=== PATIENT | female | born 1960 | race Caucasian/White ===

== ENCOUNTER → 2017-08-27 | Outpatient (CLI) | payer OTHER ==
[~2017-08-27] MED LIST: CELE10TA PO; COMMODE 3-IN-11 MIS; HYDR-3580 PO; METF500T PO; WALKER WHEELS/F1 MIS; XARE10TA PO
== END ==
LOC: CPRE 11:32
PROVIDERS: ATTEND Orthopaedic Surgery Orthopaedic Surgery of the Spine
DX: Z01.812 Encounter for preprocedural laboratory examination (principal)

== ENCOUNTER 2017-08-28 12:00 | Inpatient (IN) | payer OTHER ==
[~2017-08-28] VITALS: Ht 166.4 cm; Wt 77.2 kg
[~2017-08-28 12:00] MED LIST changes: -COMMODE 3-IN-11 MIS; +GLYCOPYRROLATE 1 MG/5 ML SYRINGE IV PUSH ONE; -HYDR-3580 PO; +LACTATED RINGER'S 1000 ML INJ 1,000 ML IV ONE; +LIDOCAINE HCL 1% PF 5 ML SYRINGE OTHER ONE; +NEOSTIGMINE 5 MG/5 ML SYRINGE IV PUSH ONE; +ONDANSETRON HCL 4 MG/2 ML VIAL IV ONE; +PROPOFOL 200 MG/20 ML AMP IV ONE; +ROCURONIUM INJ 50 MG/5 ML SYRINGE IV PUSH ONE; -WALKER WHEELS/F1 MIS; -XARE10TA PO
[2017-08-28] MEDS ORDERED: VANCOMYCIN 1 GM/200 ML INJ 200 ML IV ONE (13:51)
[2017-08-28] MEDS ORDERED: TRANEXAMIC ACID INJ 770 MG in SODIUM CHLORIDE 0.9% INJ 100 ML IV SCH (14:30)
[2017-08-28] MEDS ORDERED: VANCOMYCIN 1000 MG/NS 250 ML (for <70 kg) IV SCH ×2 (14:30)
[2017-08-28] MEDS ORDERED: CHLORHEXIDINE GLUCONATE 4% SOLN 120 ML BTL TOPICAL SCH (14:30)
[2017-08-28] MEDS ORDERED: ceFAZolin 2 GM PREMIX 50 ML IV SCH (14:30)
[2017-08-28] MEDS ORDERED: EXPAREL PERI-ARTICULAR INJECTION (TOTAL VOL. 60 ML) P-ARTICULR SCH ×2 (14:30)
[2017-08-28] MEDS ORDERED: BUPIVACAINE/EPINEPHRINE 0.25% 50 ML VIAL ONE (14:44)
[2017-08-28] MEDS ORDERED: BUPIVACAINE/EPINEPHRINE 0.25% PF 10 ML VIAL ONE (14:44)
[2017-08-28] MEDS ORDERED: GENTAMICIN SULFATE 80 MG/2 ML VIAL ONE (14:44)
[2017-08-28] MEDS ORDERED: POVIDONE IODINE 5% (ANTISEPSIS KIT) 4 APPLICATIONS EACH NARE PRN (14:45)
[2017-08-28] MEDS ORDERED: CHLORHEXIDINE GLUCONATE 2 % 1 PACK (2 CLOTHS) TOPICAL PRN (14:45)
[2017-08-28] MEDS ORDERED: METOPROLOL TARTRATE 25 MG TAB PO PRN (14:45)
[2017-08-28] MEDS ORDERED: SODIUM CHLORID 0.9% 500 ML IV PRN (14:45)
[2017-08-28] MEDS ORDERED: LACTATED RINGER'S 1000 ML IV PRN (14:45)
[2017-08-28] MEDS ORDERED: MIDAZOLAM HCL 2 MG/2 ML VIAL ONE (16:11)
--- NOTE | 2017-08-28 17:44 | RADRPT ---
EXAM DATE/TIME: 08/28/2017 16:23 [place] COMPARISON: No previous studies available for comparison. INDICATIONS : Post total right hip replacement. MEDICAL HISTORY : None. SURGICAL HISTORY : None. ENCOUNTER: Initial ACUITY: 1 day PAIN SCORE: Non-responsive. LOCATION: Right hip. FINDINGS: Patient is status post placement of a right hip prosthesis. There is good position and alignment of t he prosthesis and bony structures. The bony structures are grossly intact. Postsurgical changes are p resent. CONCLUSION: Good position and alignment on this postoperative examination. Yonas Huitron MD on August 28, 2017 at 17:41 Board Certified Radiologist. This report was verified electronically.
[2017-08-28] MEDS ORDERED: NALOXONE HCL 0.4 MG/ML AMP IV PUSH PRN (17:45)
[2017-08-28] MEDS ORDERED: MISCELLANEOUS PHARMACY INFORMATION XX ONE (17:45)
[2017-08-28] MEDS ORDERED: MORPHINE SULFATE 8 MG/ML INJ IM PRN (17:45)
[2017-08-28] MEDS ORDERED: Post-op Orders (for Pharmacy) XX ONE (17:45)
[2017-08-28] MEDS ORDERED: ACETAMINOPHEN/HYDROcodone 325 MG/7.5 MG TAB PO PRN (17:45)
[2017-08-28] MEDS ORDERED: MISCELLANEOUS NURSING INFORMATION XX PRN (17:45)
--- NOTE | 2017-08-28 17:49 | PD.OP ---
cc: Wilder Berman MD Operative Report Date of Surgery: Aug 28, 2017 Preoperative Diagnosis: Osteoarthritis right hip Postoperative Diagnosis: Same Procedure: Right total hip replacement arthroplasty, direct anterior exposure Anesthesia: Gen. Surgeon: Wilder Berman [employer] Subcontractor(s): GM Auguste Operation and Findings: EBL: 200 cc INDICATION: This patient presents with significant hip pain related to osteoarthritis. Despite extensive conservative care this patient continues to be painful and now presents for surgical treatment. NOTE: Alpa Auguste PA-C was present for the entire surgical procedure as my psychology assistant. In my medical opinion her skill and care was necessary for the proper management of this patient. COMPONENTS: COMPANY: [employer] CUP: [place], 48 mm, 100 series, gription surface LINER: Altrx 32 mm, neutral STEM: [place], size 10, standard offset, hydroxyapatite-coated HEAD: Ceramic, 32 mm, +1, 12/14 taper PROCEDURE: This patient was brought to the operating room and anesthetized in the supine position and positioned on the fracture table with both legs held extended. The right hip and leg was scrubbed with alcohol followed by Hibiclens followed by ChloraPrep and draped sterilely. Antibiotics were given within routine time window and a timeout was done. A 4 inch incision was made starting 2 cm distal and 2 cm lateral to the anterior superior iliac spine. The fascia shin was opened longitudinally. The interval between the fascia shin and the rectus was opened down to the capsule of the hip joint. Retractors were positioned allowing good visualization of the capsule. This was opened longitudinally and flaps were created. Stay sutures were utilized. Exposure was excellent. The neck was cut at the proper location using fluoroscopy as a guide. The head was removed. Deep retractors were positioned allowing good visualization of the acetabulum. Acetabulum was deepened down to the floor starting with a proper size reamer and reaming up to 47 mm. A trial was utilized. Fluoroscopy was used to check position and confirmed satisfactory alignment. The rim was reamed with a orally 8 mm reamer and the final cup was positioned in approximately 20 of anteversion and 40-45 of abduction. Position was satisfactory. A single hole eliminator was positioned followed by the final liner. The lifting hook was utilized. The leg was dropped to the floor, maximally externally rotated and brought across the midline. Retractors were positioned. A box osteotome was utilized followed by progressive broaching to the proper stem size. Trial reduction showed excellent alignment and fit. With 60 of external rotation the leg was dropped to the floor without evidence of anterior subluxation. The wound was irrigated. The final stem was inserted and was found to be very stable. The final reduction using the final head. Stability was as previously noted. Intraoperative x-rays were taken. The wound was irrigated copiously. Hemostasis was controlled. Local anesthesia was utilized. The capsule was repaired with #2 Tycron sutures. The fascia shin was repaired with running 0 PDS on a loop. Subcutaneous tissue was approximated with 2-0 Vicryl and skin with running intradermal 3-0 Vicryl followed by Steri-Strips. A sterile dressing was applied. The patient was awakened and taken to the recovery room in satisfactory condition. FINDINGS: There was severe osteoarthritis of the right hip. There was significant fluid in the right hip joint. The final solution was excellent. No complication was appreciated. We lengthened the right leg by approximately 5 -6 mm Wilder Berman MD Aug 28, 2017 17:49
[2017-08-28] MEDS ORDERED: XARE10TA PO (17:52)
[2017-08-28] MEDS ORDERED: HYDR-3580 PO (17:52)
[2017-08-28] MEDS ORDERED: DO NOT ADM ANY ANTICOAGULANT DRUGS PRN (18:13)
[2017-08-28] MEDS ORDERED: *PROMETHAZINE 25 MG/ML VIAL PERIprocedural use ONLY ONE (18:14)
[2017-08-28] MEDS ORDERED: PILL SPLITTER OTHER PRN (18:15)
[2017-08-28] MEDS ORDERED: *MEPERIDINE 25 MG INJ VIAL PERIprocedural Use ONLY ONE (18:21)
[2017-08-28] MEDS ORDERED: MORPHINE SULFATE 4 MG/ML INJ ONE (18:31)
[2017-08-28] MEDS ORDERED: *morphine SULFATE 10 MG/ML PERIprocedure ONLY ONE (18:34)
[2017-08-28] MEDS: LACTATED RINGER'S 1000 ML INJ 1,000 ML IV SCH (19:00)
[2017-08-28] MEDS: MAGNESIUM HYDROXIDE SUSP 30 ML CUP PO SCH (20:45)
[2017-08-28] MEDS ORDERED: metFORMIN HCL 500 MG TAB PO SCH (21:00)
[2017-08-28] MEDS ORDERED: SENNOSIDES 8.6 MG TAB PO SCH (21:00)
[2017-08-28] MEDS ORDERED: CITALOPRAM HYDROBROMIDE 20 MG TAB PO SCH (21:00)
[2017-08-28] MEDS ORDERED: WALKER WHEELS/F1 MIS (22:12)
--- NOTE | 2017-08-28 22:12 | HHI.FF ---
Face to Face Verification Diagnosis: (1) Osteoarthritis of right hip Physical Therapy Gait training, Safety evaluation, Transfer training, bed to chair Hip: Total hip, Protocol: Right, Progress to weight bearing Right LE Weight Bearing: WB as tolerated Additional Instructions PT 3-4 days/wk for 2 weeks. WBAT RightLE. Anterior KIRSTY precautions. Gait training. Walker/cane assist. Nursing RN Days per Week: 2 x Week(s): 1 RN: 3 days/week x 2 weeks ((not sure why 3x/wk for 2 weeks is automated.... should be 2 times a week for ONE week)) Dressing Changes: Do not change dressing Additional Instructions Vitals assessment. Dressing assessment - do not change unless saturated. I have seen patient Keri Serrato on 08/28/17. My clinical findings support the need for the requested home health care services because: Limited ability to care for self High risk of falls I certify that my clinical findings support that this patient is homebound because: Post-op weakness Unsteady gait/balance Brittni Jung Aug 28, 2017 22:12
[2017-08-28] MEDS: ACETAMINOPHEN/HYDROcodone 325 MG/7.5 MG TAB PO PRN (22:15)
[2017-08-28 22:30] VITALS: BP 138/65; PULSE 86; RESP 17; TEMP 98.3; O2SAT 100
[2017-08-29] MEDS: ACETAMINOPHEN/HYDROcodone 325 MG/7.5 MG TAB PO PRN ×4 (02:20→14:11)
[2017-08-29 03:40] VITALS: BP 138/62; PULSE 98; RESP 17; TEMP 98.1; O2SAT 96
[2017-08-29] MEDS: LACTATED RINGER'S 1000 ML INJ 1,000 ML IV SCH (04:57)
[2017-08-29] MEDS ORDERED: ONDANSETRON HCL 4 MG/2 ML VIAL IV PUSH PRN (07:00)
[2017-08-29 07:44] VITALS: BP 102/57; PULSE 93; RESP 19; TEMP 98.3; O2SAT 94
[2017-08-29] MEDS: MAGNESIUM HYDROXIDE SUSP 30 ML CUP PO SCH (08:48)
[2017-08-29] MEDS ORDERED: RIVAROXABAN 10 MG TAB PO SCH (09:00)
[2017-08-29 11:54] VITALS: BP 118/58; PULSE 80; RESP 19; TEMP 97.8; O2SAT 99
[2017-08-29] MEDS ORDERED: COMMODE 3-IN-11 MIS (12:43)
--- NOTE | 2017-08-29 12:44 | HHI.DCPOC ---
Discharge Care Plan Diagnosis: (1) Osteoarthritis of right hip Your Health Problems Are: Difficulty with ADL Incision/Drains Swelling Goals to Promote Your Health * To prevent worsening of your condition and complications * To maintain your health at the optimal level Directions to Meet Your Goals Take your medications as prescribed Follow your dietary instruction Follow activity as directed Keep your appointments as scheduled Take your immunizations and boosters as scheduled If your symptoms worsen call your PCP, if no PCP go to Urgent Care Center or Emergency Room Smoking is Dangerous to Your Health. Avoid second hand smoke Call the 24-hour hour crisis hotline for domestic abuse at Brittni Jung Aug 29, 2017 12:44
--- NOTE | 2017-08-29 12:45 | HHI.DS ---
Discharge Summary Admission Date Aug 28, 2017 at 13:04 Discharge Date: Aug 29, 2017 Admitting Diagnosis see below Diagnosis: (1) Osteoarthritis of right hip Diagnosis: Principal ICD Codes: M16.11 - Unilateral primary osteoarthritis, right hip Procedures Right total hip arthroplasty, direct anterior approach Brief History This is a 57 year old female patient with a multi-year history of right hip pain. She began treatment over a year ago in [place]. Xrays showed moderate to severe hip arthritis. Conservative measures were pursued including use of tylenol, ice, heat and physical therapy. She was not progressing so she pursued an intra-articular hip injection february 2017. She was able to get great relief but only for 3-4 weeks. Surgical treatment was recommended. She moved to [place] and after review of her history surgery was again recommended in the form of right total hip arthroplasty, direct anterior approach. She agreed and now presents for the above. Hospital Course Surgical treatment was performed on the day of admission without complication. She recovered well in PACU and was transferred to the orthopaedic floor. Pain was controlled with IV and oral medications. She was compliant with physical therapy and all total hip precautions. After 1 day she was found to be stable and discharged home with home health care with instruction to continue her therapy, to ice her operative hip and to pursue a high fiber diet. She was given prescriptions for [place] 7.5mg and Xarelto 10mg (patient has an allergy to nonsteroidal medications). Pt Condition on Discharge: Stable Discharge Disposition: Disch w/ Home Health Serv Discharge Instructions Diet Instructions: Diabetic Diet, High Fiber Diet Activities You Can Perform: Weight Bearing as Mey Activities to Avoid: Strenuous Activity New Medications: Commode 3-in-1 (Commode 3-in-1) 1 Mis Mis EA .XX DIRECTED, #1 0 Refills Walker with Front Wheels (Walker with Front Wheels) 1 Mis Mis EA .XX DIRECTED, #1 0 Refills Hydrocodone/Acetaminophen (Hydrocodone-Acetamin 7.5-325) 7.5 Mg-325 Mg Tablet 1 TAB PO Q4H PRN for PAIN, #50 TAB Rivaroxaban (Xarelto) 10 Mg Tab 10 MG PO DAILY for Prevent Blood Clot, #25 TAB Continued Medications: Citalopram (Celexa) 10 Mg Tab 10 MG PO HS for Control Depression, #30 TAB 0 Refills Metformin (Metformin) 500 Mg Tab 500 MG PO HS for Blood Sugar Management, #30 TAB 0 Refills With a meal Brittni Jung Aug 29, 2017 12:45
--- NOTE | 2017-08-29 12:47 | PD.ORT.PN ---
Subjective Subjective Remarks She is doing well. Her pain medication helps but she still has moderate right hip and thigh pain. No new radiating leg pain past knee. No CP or SOB. Prefers to go home today. Objective Vitals Vital Signs Date Time Temp Pulse Resp B/P (MAP) Pulse Ox O2 Delivery O2 Flow Rate FiO2 08/29/17 11:54 97.8 80 19 118/58 (78) 99 08/29/17 07:44 98.3 93 19 102/57 (72) 94 08/29/17 03:40 98.1 98 17 138/62 (87) 96 08/28/17 22:30 98.3 86 17 138/65 (89) 100 08/28/17 21:00 70 12 160/69 (99) 100 Room Air 08/28/17 20:00 97.4 63 13 159/65 (96) 100 Nasal Cannula 2 08/28/17 19:19 15 08/28/17 19:00 87 16 128/60 (82) 100 Nasal Cannula 2 08/28/17 18:45 77 15 139/63 (88) 99 Nasal Cannula 2 08/28/17 18:39 15 08/28/17 18:30 79 15 103/59 (74) 98 Nasal Cannula 2 08/28/17 18:15 73 14 90/58 (69) 98 Nasal Cannula 2 08/28/17 18:10 98.0 68 14 154/75 (101) 100 Nasal Cannula 3 08/28/17 14:12 98.6 78 20 144/79 (100) 98 I/O 08/28/17 08/28/17 08/28/17 08/29/17 08/29/17 08/29/17 07:00 15:00 23:00 07:00 15:00 23:00 Intake Total 2100 ml 100 ml 240 ml Output Total 200 ml Balance 1900 ml 100 ml 240 ml Intake Oral 240 ml IV Total 2100 ml 100 ml Output Estimated Blood Loss 200 ml # Voids 2 # Bowel Movements 0 Procedures Right total hip arthroplasty, direct anterior approach Objective Remarks Laying in bed NAD VSS at bedside Right LE Hip dressing c/d/i, no new drainage, mild swelling, no erythema +motor at, +sens, +nvi Neg homans Assessment & Plan Ortho Post Op Day #: 1 Problem List: (1) Osteoarthritis of right hip ICD Codes: M16.11 - Unilateral primary osteoarthritis, right hip Qualifiers: Qualified Codes: M16.11 - Unilateral primary osteoarthritis, right hip Assessment and Plan pod#1 s/p R KIRSTY, anterior Doing well. Ortho stable. Ok to d/c home today after PT. HHC order written. Xarelto 10mg qd. She is allergic to NSAID products. [place] 7.5mg written. Hold dressing changes unless saturated. PT - WBAT RLE. KIRSTY precautions. F/U in 2 weeks as scheduled. Brittni Jung Aug 29, 2017 12:47
--- NOTE | 2017-08-29 20:52 | EKG ---
Date Performed: 08/28/2017 Time Performed: 15:00:01 PTAGE: 57 years EKG: Sinus rhythm NORMAL ECG NO PREVIOUS TRACING DOCTOR: Roger Granda Interpretating Date/Time 08/29/2017 20:49:52
== END 2017-08-29 14:53 | disposition home health service (06) | DRG 470 ==
LOC: HSDI 13:04 → N06B 22:06
PROVIDERS: ADMIT Orthopaedic Surgery Orthopaedic Surgery of the Spine; ATTEND Orthopaedic Surgery Orthopaedic Surgery of the Spine
PROC: 0SR904A Replacement of Right Hip Joint with Ceramic on Polyethylene Synthetic Substitute, Uncemented, Open Approach (ICD-10-PCS; principal; 2017-08-28 15:56)
DX: M16.11 Unilateral primary osteoarthritis, right hip (principal); F32.9 Major depressive disorder, single episode, unspecified; E11.9 Type 2 diabetes mellitus without complications; Z79.84 Long term (current) use of oral hypoglycemic drugs; Z96.653 Presence of artificial knee joint, bilateral; F41.9 Anxiety disorder, unspecified
CPT/HCPCS: 73502; 76000; 82948; 86850; 86890; 86900; 86901; 86920; 93005; 94150; C1776; C9290; J0690; J1580; J2175; J2250; J2270; J2405; J2550; J2710; J3010; J3370; J7120